=== PATIENT | male | born 1990 | race Caucasian/White ===

== ENCOUNTER 2017-11-12 11:19 | Emergency (ER) | payer OTHER, BC ==
[2017-11-12] MEDS: MECLIZINE 25 MG TABLET PO (16:01)
== END 2017-11-12 16:07 | disposition home or self-care (01) ==
LOC: M ED 11:19
DX: R42 Dizziness and giddiness (principal); J45.909 Unspecified asthma, uncomplicated; F33.9 Major depressive disorder, recurrent, unspecified; Z79.51 Long term (current) use of inhaled steroids; Z88.0 Allergy status to penicillin
CPT/HCPCS: 70450